=== PATIENT | female | born 1940 | race Caucasian/White ===

== ENCOUNTER → 2024-10-27 10:51 | Outpatient (REF) | payer BC, MEDICARE, SELFPAY ==
[2024-10-27 11:42] LABS: Hematocrit 31.4 % (37.0-47.0); Hemoglobin 10.2 g/dL (12.0-16.0); Mean Corp Hgb Conc. 32.5 g/dL (33.0-37.0); Mean Corpuscular Hgb 30.2 pg (27.0-31.0); Mean Corpuscular Volume 92.9 fL (81.0-99.0); Mean Platelet Volume 9.4 fL (7.4-10.4); Platelet Count 232 10^3/uL (130-400); Red Blood Cell Count 3.38 10^6/uL (4.20-5.40); Red Cell Dist. Width 13.2 % (11.5-14.5); White Blood Cell Count 5.8 10^3/uL (4.8-10.8)
[2024-10-27 12:46] LABS: ALT (SGPT) 14 U/L (0-35); AST (SGOT) 19 U/L (14-36); Albumin 3.4 g/dl (3.5-5.0); Alkaline Phosphatase 86 U/L (38-126); Blood Urea Nitrogen 40 mg/dl (7-17); Carbon Dioxide 23 mmol/L (22-30); Chloride 105 mmol/L (98-107); Glucose 113 mg/dl (70-99); HDL Cholesterol 48 mg/dl; LDL Cholesterol, Calculated 59 mg/dl; Magnesium 2.2 mg/dl (1.6-2.3); Potassium 4.5 mmol/L (3.5-5.1); Sodium 136 mmol/L (135-145); Total Bilirubin 0.4 mg/dl (0.2-1.3); Total Cholesterol 143 mg/dl (50-199); Total Protein 6.1 g/dl (6.3-8.2); Triglyceride 182 mg/dl (10-149); Very Low Density Lipoprotein 36 mg/dl (0-30); eGFR 24.48
[2024-10-27 12:51] LABS: Vitamin D, 25-OH*** 16.1 ng/mL (30-80)
[2024-10-27 13:04] LABS: TSH 1.88 uIU/ml (0.47-4.68)
[2024-10-27 13:26] LABS: Glycohemoglobin (HgbA1c) 6.8 % (4.0-5.6)
== END ==
LOC: OLABN 10:51
PROVIDERS: ATTENDING PHYSICIAN Student in an Organized Health Care Education/Training Program
DX: Z13.0 Encounter for screening for diseases of the blood and blood-forming organs and certain disorders involving the immune mechanism (principal); E83.40 Disorders of magnesium metabolism, unspecified; E03.9 Hypothyroidism, unspecified; R94.6 Abnormal results of thyroid function studies; Z13.220 Encounter for screening for lipoid disorders; E55.9 Vitamin D deficiency, unspecified; R73.09 Other abnormal glucose
CPT/HCPCS: 36415; 80053; 80061; 82306; 83036; 83735; 84443; 85027

== ENCOUNTER → 2024-11-02 22:00 | Outpatient (REF) | payer BC, MEDICARE, SELFPAY ==
[2024-11-03 13:15] LABS: Urine Albumin 3+ (Neg - Trace); Urine Bilirubin Negative (Negative); Urine Character Cloudy (Clear); Urine Color Yellow; Urine Glucose Negative (Negative); Urine Ketone Negative (Negative); Urine Leukocyte 3+ (Negative); Urine Nitrite Positive (Negative); Urine Occult Blood 2+ (Negative); Urine Urobilinogen Negative (Neg - 1+); Urine pH 6.5 (5.0-9.0)
[2024-11-03 13:58] LABS: Urine Amorphous Seen
[2024-11-03 13:59] LABS: Urine Bacteria Many (Negative); Urine Red Blood Cell 0-2 /HPF (0-2); Urine White Cell 40-50 /HPF (0-5)
== END ==
LOC: OLABN 22:00
PROVIDERS: ATTENDING PHYSICIAN Student in an Organized Health Care Education/Training Program
DX: R30.0 Dysuria (principal)
CPT/HCPCS: 81003; 81015; 87086

== ENCOUNTER → 2024-11-04 18:45 | Outpatient (REF) | payer BC, MEDICARE, SELFPAY ==
[2024-11-05 12:02] LABS: Urine Albumin 2+ (Neg - Trace); Urine Bilirubin Negative (Negative); Urine Character Clear (Clear); Urine Color Yellow; Urine Glucose Negative (Negative); Urine Ketone Negative (Negative); Urine Leukocyte 3+ (Negative); Urine Nitrite Negative (Negative); Urine Occult Blood 1+ (Negative); Urine Urobilinogen Negative (Neg - 1+); Urine pH 6.5 (5.0-9.0)
[2024-11-05 13:03] LABS: Urine Bacteria Many (Negative); Urine Red Blood Cell 0-2 /HPF (0-2); Urine Squamous Cell >30 /LPF (Few)
[2024-11-05 13:04] LABS: Urine Amorphous Seen; Urine White Cell 21-25 /HPF (0-5)
== END ==
LOC: OLABN 18:45
PROVIDERS: ATTENDING PHYSICIAN Student in an Organized Health Care Education/Training Program
DX: R30.0 Dysuria (principal)
CPT/HCPCS: 81003; 81015; 87086

== ENCOUNTER → 2024-11-06 21:50 | Outpatient (REF) | payer BC, MEDICARE, SELFPAY ==
[2024-11-07 08:41] LABS: Urine Albumin 2+ (Neg - Trace); Urine Bilirubin Negative (Negative); Urine Character Slightly Cloudy (Clear); Urine Color Yellow; Urine Glucose Negative (Negative); Urine Ketone Negative (Negative); Urine Leukocyte 3+ (Negative); Urine Nitrite Negative (Negative); Urine Occult Blood 1+ (Negative); Urine Urobilinogen Negative (Neg - 1+)
[2024-11-07 09:15] LABS: Urine Amorphous Seen; Urine Bacteria Many (Negative); Urine White Cell 26-30 /HPF (0-5)
== END ==
LOC: OLABN 21:50
PROVIDERS: ATTENDING PHYSICIAN Student in an Organized Health Care Education/Training Program
DX: R30.0 Dysuria (principal)
CPT/HCPCS: 81003; 81015; 87086

== ENCOUNTER → 2024-12-15 11:31 | Outpatient (REF) | payer BC, MEDICARE, SELFPAY ==
[2024-12-15 12:12] LABS: Hematocrit 32.4 % (37.0-47.0); Hemoglobin 10.7 g/dL (12.0-16.0); Mean Corpuscular Hgb 31.1 pg (27.0-31.0); Mean Corpuscular Volume 94.2 fL (81.0-99.0); Platelet Count 219 10^3/uL (130-400); Red Blood Cell Count 3.44 10^6/uL (4.20-5.40); Red Cell Dist. Width 12.8 % (11.5-14.5); White Blood Cell Count 5.8 10^3/uL (4.8-10.8)
[2024-12-15 12:26] LABS: Blood Urea Nitrogen 30 mg/dl (7-17); Calcium 9.2 mg/dl (8.4-10.2); Carbon Dioxide 27 mmol/L (22-30); Chloride 107 mmol/L (98-107); Glucose 119 mg/dl (70-99); Potassium 4.1 mmol/L (3.5-5.1); Sodium 140 mmol/L (135-145)
[2024-12-15 12:43] LABS: Vitamin D, 25-OH*** 14.4 ng/mL (30-80)
[2024-12-15 12:57] LABS: TSH 1.99 uIU/ml (0.47-4.68)
== END ==
LOC: OLABN 11:31
PROVIDERS: ATTENDING PHYSICIAN Student in an Organized Health Care Education/Training Program
DX: Z13.0 Encounter for screening for diseases of the blood and blood-forming organs and certain disorders involving the immune mechanism (principal); Z13.21 Encounter for screening for nutritional disorder; R94.6 Abnormal results of thyroid function studies
CPT/HCPCS: 36415; 80048; 82306; 84443; 85027

== ENCOUNTER 2025-02-27 14:30 | Emergency (ER) | payer MEDICARE, BC, SELFPAY ==
[2025-02-27 14:32] VITALS: BP 134/72
[2025-02-27 17:55] LABS: Urine Albumin 3+ (Neg - Trace); Urine Bilirubin 2+ (Negative); Urine Character Cloudy (Clear); Urine Glucose Negative (Negative); Urine Ketone Negative (Negative); Urine Leukocyte 3+ (Negative); Urine Nitrite Positive (Negative); Urine Occult Blood 4+ (Negative); Urine Urobilinogen 2+ (Neg - 1+)
[2025-02-27 17:57] LABS: Urine Color Orange
[2025-02-27 18:02] LABS: Urine Amorphous Seen; Urine Squamous Cell 0-2 /LPF (Few); Urine White Cell 26-30 /HPF (0-5)
[2025-02-27 18:03] LABS: Urine Bacteria Many (Negative)
--- NOTE | 2025-02-27 18:14 | ED.GENMED ---
History of Present Illness
General
Chief Complaint: Urinary Symptoms
Source: patient
Time Seen by Provider: 02/27/25 16:17
History of Present Illness
History of Present Illness:
84-year-old female presents with urinary symptoms such as dysuria and increased frequency over the past several days. She denies fever nausea vomiting or abdominal pain. She has a history of UTIs and this feels similar. No other complaints at
this time
Phy Exam
Physical Exam
Physical Exam:
General: Well-appearing female no acute respiratory distress
HEENT: Normocephalic atraumatic heart: Regular rate and rhythm
Lungs: Clear no wheeze
Abdomen is soft nontender nondistended no guarding rebound normal bowel sounds
Course
Orders/Labs/Results
Orders:
Orders
02/27/25 16:35
Straight cath- Treatment ONCE
02/27/25 17:42
Urinalysis Reflex To Culture Urgent
Date Specimen was Collected: 02/27/25
Time Specimen was Collected: 14:38
Urine Microscopic Reflex Cult Urgent
Urine Culture Urgent
BALDOMERO Source: U
Specimen Description:
Obtained by: Random
Date Specimen was Collected: 02/27/25
Time Specimen was Collected: 14:38
02/27/25 18:13
Cefdinir [Omnicef] 300 mg PO NOW STA
Abnormal Lab Results
02/27/25
17:42
Ur Occult Blood Reflex 4+ A
(Negative)
Urine Nitrite (Reflex) Positive A
(Negative)
Urine Bilirubin 2+ A
(Negative)
Urine Urobilinogen 2+ A
(Neg - 1+)
Leukocyte Esterase Rfl 3+ A
(Negative)
Urine RBC 7-10 A /HPF
(0-2)
Urine WBC (Reflex) 26-30 A /HPF
(0-5)
Urine Bacteria (Reflex) Many A
(Negative)
Urine Albumin (Reflex) 3+ A
(Neg - Trace)
Vital Signs
Initial and Last Documented VS:
Initial Vital Signs
Temp Pulse Resp BP Pulse Ox
98.9 F 73 20 134/72 95
02/27/25 14:32 02/27/25 14:32 02/27/25 14:32 02/27/25 14:32 02/27/25 14:32
Last Documented Vital Signs
Temp Pulse Resp BP Pulse Ox
98.9 F 73 20 134/72 95
02/27/25 14:32 02/27/25 14:32 02/27/25 14:32 02/27/25 14:32 02/27/25 14:32
MDM/Problems Addressed
Differential Diagnosis Includes:
Urinary symptoms. Consider UTI, cystitis pyelonephritis or kidney stone. Patient overall nontoxic without any pain afebrile with stable vital signs. Urinalysis pending
Urinalysis consistent with UTI. Systemically otherwise well not febrile no indication for admission. Will start on Omnicef and discharge
*Pulse Oximetry
SaO2: 95
Oxygen Mode of Delivery: Room air
*Critical Care Note
Total Time (30-74mins, 75-104mins- exclusive of procedures): Not Applicable
ED Attending Note
-
Portions of this chart may have been created with voice recognition software.� Occasional wrong word or��sound alike� substitutions may have occurred due to the inherent limitations of voice recognition software.
Discharge Plan
Departure
Patient Disposition: Home (Routine Discharge)
Date of Disposition: 02/27/25
Time of Disposition: 18:16
Patient with high blood pressure during this ER visit?: No
Discharge Problem:
Acute UTI
Instructions: Urinary Tract Infection, Adult (DC)
Prescriptions:
New
cefdinir 300 mg capsule
300 mg PO BID Qty: 14 0RF
Referrals:
Shira Crouch MD [Family Provider, Internal Medicine]
Activity Restrictions/Additional Instructions:
Drink plenty clear liquids. Use antibiotic as directed. Return if worse otherwise follow-up with your doctor
Interventions
Interventions:
*General Assessment Last Done: 02/27/25 14:32
*Neglect/Abuse Screening Last Done: 02/27/25 14:32
Discharge Date and Time
Print Language: FAROESE
[2025-02-27] MEDS: OMNICEF 300 MG PO (18:33)
[2025-02-27 18:35] VITALS: BP 136/74
[2025-02-27 19:14] VITALS: BP 155/78
== END 2025-02-27 19:17 | disposition home or self-care (01) ==
LOC: EMR 14:30
PROVIDERS: Emergency Medicine; EMERGENCY PHYSICIAN Emergency Medicine; FAMILY PHYSICIAN Internal Medicine
DX: N39.0 Urinary tract infection, site not specified (principal)
CPT/HCPCS: 99283; 81003; 81015; 87086

== ENCOUNTER → 2025-03-30 22:15 | Outpatient (REF) | payer MEDICARE, BC, SELFPAY ==
[2025-03-31 13:51] LABS: Urine Character Cloudy (Clear)
[2025-03-31 14:16] LABS: Urine Red Blood Cell 0-2 /HPF (0-2); Urine White Cell 16-20 /HPF (0-5)
== END ==
LOC: OLABN 22:15
PROVIDERS: ATTENDING PHYSICIAN Student in an Organized Health Care Education/Training Program
DX: R30.9 Painful micturition, unspecified (principal)
CPT/HCPCS: 81003; 81015; 87086

== ENCOUNTER → 2025-04-02 18:52 | Outpatient (REF) | payer MEDICARE, BC, SELFPAY ==
[2025-04-02 19:41] LABS: Urine Character Slightly Cloudy (Clear)
[2025-04-02 19:42] LABS: Urine Squamous Cell >30 /LPF (Few); Urine White Cell 50-60 /HPF (0-5)
== END ==
LOC: OLABN 18:52
PROVIDERS: ATTENDING PHYSICIAN Student in an Organized Health Care Education/Training Program
DX: R30.9 Painful micturition, unspecified (principal)
CPT/HCPCS: 81003; 81015; 87086

== ENCOUNTER → 2025-04-04 22:05 | Outpatient (REF) | payer MEDICARE, BC, SELFPAY ==
[2025-04-05 12:45] LABS: Urine Character Clear (Clear)
[2025-04-05 13:31] LABS: Urine Squamous Cell 16-20 /LPF (Few)
[2025-04-05 13:32] LABS: Urine Red Blood Cell 40-50 /HPF (0-2); Urine White Cell 0-2 /HPF (0-5)
== END ==
LOC: OLABN 22:05
PROVIDERS: ATTENDING PHYSICIAN Student in an Organized Health Care Education/Training Program
DX: R30.9 Painful micturition, unspecified (principal)
CPT/HCPCS: 81003; 81015; 87086

== ENCOUNTER → 2025-04-08 10:00 | Outpatient (REF) | payer MEDICARE, BC, SELFPAY ==
[2025-04-08 16:28] LABS: Urine Character Cloudy (Clear)
[2025-04-08 16:43] LABS: Urine Squamous Cell 0-2 /LPF (Few)
[2025-04-08 16:45] LABS: Urine White Cell 30-40 /HPF (0-5)
== END ==
LOC: OLABN 10:00
PROVIDERS: ATTENDING PHYSICIAN Student in an Organized Health Care Education/Training Program
DX: R35.0 Frequency of micturition (principal)
CPT/HCPCS: 81003; 81015; 87086

== ENCOUNTER → 2025-04-09 21:01 | Outpatient (REF) | payer MEDICARE, BC, SELFPAY ==
[2025-04-09 21:37] LABS: Urine Character Cloudy (Clear)
[2025-04-09 21:46] LABS: Urine Squamous Cell 0-2 /LPF (Few)
[2025-04-09 21:47] LABS: Urine Red Blood Cell 0-2 /HPF (0-2); Urine White Cell 70-80 /HPF (0-5)
== END ==
LOC: OLABN 21:01
PROVIDERS: ATTENDING PHYSICIAN Student in an Organized Health Care Education/Training Program
DX: R35.0 Frequency of micturition (principal)
CPT/HCPCS: 81003; 81015

== ENCOUNTER → 2025-04-11 10:22 | Outpatient (REF) | payer MEDICARE, BC, SELFPAY ==
[2025-04-11 12:20] LABS: Hematocrit 33.2 % (37.0-47.0); Hemoglobin 11.0 g/dL (12.0-16.0); Mean Corp Hgb Conc. 33.1 g/dL (33.0-37.0); Mean Corpuscular Volume 94.3 fL (81.0-99.0); Nucleated Red Blood Cells % 0 %; Platelet Count 242 10^3/uL (130-400); Red Cell Dist. Width 12.0 % (11.5-14.5)
[2025-04-11 12:30] LABS: Blood Urea Nitrogen 44 mg/dl (7-17); Calcium 9.7 mg/dl (8.4-10.2); Carbon Dioxide 27 mmol/L (22-30); Chloride 104 mmol/L (98-107); Glucose 141 mg/dl (70-99); Potassium 4.5 mmol/L (3.5-5.1); Sodium 136 mmol/L (135-145); eGFR 34.36
== END ==
LOC: OLABN 10:22
PROVIDERS: ATTENDING PHYSICIAN Student in an Organized Health Care Education/Training Program
DX: R30.0 Dysuria (principal)
CPT/HCPCS: 36415; 80048; 85025

== ENCOUNTER → 2025-04-18 10:49 | Outpatient (REF) | payer MEDICARE, BC, SELFPAY ==
[2025-04-18 11:53] LABS: Blood Urea Nitrogen 27 mg/dl (7-17); Calcium 9.0 mg/dl (8.4-10.2); Carbon Dioxide 30 mmol/L (22-30); Chloride 102 mmol/L (98-107); Glucose 140 mg/dl (70-99); Potassium 4.8 mmol/L (3.5-5.1); Sodium 138 mmol/L (135-145); eGFR 49.86
== END ==
LOC: OLABN 10:49
PROVIDERS: ATTENDING PHYSICIAN Student in an Organized Health Care Education/Training Program
DX: R30.0 Dysuria (principal)
CPT/HCPCS: 36415; 80048

== ENCOUNTER → 2025-04-29 17:00 | Outpatient (REF) | payer MEDICARE, BC, SELFPAY ==
[2025-04-30 12:40] LABS: Urine Character Clear (Clear)
[2025-04-30 13:04] LABS: Urine White Cell 30-40 /HPF (0-5)
== END ==
LOC: OLABN 17:00
PROVIDERS: ATTENDING PHYSICIAN Student in an Organized Health Care Education/Training Program
DX: R30.9 Painful micturition, unspecified (principal)
CPT/HCPCS: 81003; 81015; 87077; 87086

== ENCOUNTER → 2025-06-03 09:28 | Outpatient (REF) | payer MEDICARE, BC, SELFPAY ==
[2025-06-03 10:17] LABS: Vitamin D, 25-OH*** 24.0 ng/mL (30-80)
== END ==
LOC: OLABN 09:28
PROVIDERS: ATTENDING PHYSICIAN Student in an Organized Health Care Education/Training Program
DX: E55.9 Vitamin D deficiency, unspecified (principal)
CPT/HCPCS: 36415; 82306

== ENCOUNTER → 2025-06-29 10:36 | Outpatient (REF) | payer MEDICARE, BC, SELFPAY ==
[2025-06-29 10:59] LABS: Urine Character Slightly Cloudy (Clear)
[2025-06-29 11:11] LABS: Urine Red Blood Cell 0-2 /HPF (0-2)
== END ==
LOC: OLABN 10:36
PROVIDERS: ATTENDING PHYSICIAN Student in an Organized Health Care Education/Training Program
DX: R82.90 Unspecified abnormal findings in urine (principal)
CPT/HCPCS: 36415; 81003; 81015; 87086